=== PATIENT | male | born 1980 | race African-American/Black ===

== ENCOUNTER 2016-08-19 18:09 | Emergency (ER) | payer MEDICAID ==
[~2016-08-19] VITALS: Ht 177.8 cm; Wt 79.5 kg
[2016-08-19] MEDS ORDERED: IBUPROFEN 800 MG TABLET PO ONE (20:15)
[2016-08-19 21:46] VITALS: BP 126/67
== END 2016-08-19 21:47 | disposition home or self-care (01) ==
LOC: EMS 18:13
DX: S80.02XA Contusion of left knee, initial encounter (principal); W18.09XA Striking against other object with subsequent fall, initial encounter; Y93.89 Activity, other specified; Y92.480 Sidewalk as the place of occurrence of the external cause; Y99.8 Other external cause status
CPT/HCPCS: 29505; 99284

== ENCOUNTER 2018-07-28 20:45 | Emergency (ER) | payer MEDICAID, OTHER ==
[~2018-07-28] VITALS: Ht 177.8 cm; Wt 97.7 kg
[2018-07-28] MEDS ORDERED: IBUPROFEN 600 MG TABLET PO ONE (22:30)
[2018-07-28 23:33] VITALS: BP 133/98
== END 2018-07-28 23:34 | disposition home or self-care (01) ==
LOC: EMS 21:42
DX: M25.562 Pain in left knee (principal); M79.89 Other specified soft tissue disorders; Z98.890 Other specified postprocedural states
CPT/HCPCS: 29505